=== PATIENT | male | born 1990 | race African-American/Black ===

== ENCOUNTER 2019-03-11 11:57 | Emergency (ER) | payer OTHER ==
[~2019-03-11] VITALS: Ht 160 cm; Wt 59.0 kg
[2019-03-11] MEDS ORDERED: TYLENOL325 MG PO (12:21)
[2019-03-11] MEDS ORDERED: COLACE100 MG PO (12:40)
[2019-03-11] MEDS ORDERED: ANUSOL-HC30 GM TOP (12:40)
[2019-03-11 13:09] VITALS: BP 124/81
== END 2019-03-11 13:10 | disposition home or self-care (01) ==
LOC: ER 11:57
DX: K64.9 Unspecified hemorrhoids (principal)